=== PATIENT | male | born 1955 | race Caucasian/White ===

== ENCOUNTER 2021-05-02 09:36 | Observation (INO) ==
[2021-05-02 10:30] LABS: Basophils % 0.2 %; Eosinophils # 0.1 K/mcL (0.0-0.6); Eosinophils % 0.9 %; Hematocrit 37.6 % (37.5-50.1); Immature Granulocytes % 1.2 % (0-4); Lymphocytes # 1.2 K/mcL (0.6-4.6); Lymphocytes % 21.8 %; Mean Corpuscular HGB Conc 31.9 g/dL (31.6-35.5); Mean Corpuscular Hemoglobin 27.3 pg (28.0-33.3); Mean Corpuscular Volume 85.5 fL (83.0-100.0); Mean Platelet Volume 9.9 fL (9.4-12.4); Monocytes # 0.4 K/mcL (0.0-1.3); Monocytes % 6.7 %; Neutrophils # 3.9 K/mcL (1.6-8.9); Platelet Count 169 K/mcL (140-400); Red Cell Distribution Width 14.4 % (11.5-14.5); Segmented Neutrophils % 69.2 %; White Blood Count 5.6 K/mcL (4.3-11.1)
[2021-05-02 10:38] LABS: INR 1.1; Prothrombin Time 11.8 Seconds (9.4-12.1)
[2021-05-02 10:40] LABS: Activated Partial Thrombo Time 26.3 Seconds (26.0-36.0)
[2021-05-02 10:50] LABS: BUN/Creatinine Ratio 13 (6-26); Blood Urea Nitrogen 8 mg/dL (8-23); Calcium 8.7 mg/dL (8.6-10.3); Carbon Dioxide 29 mEq/L (23-29); Chloride 97 mEq/L (98-107); Glucose 214 mg/dL (70-105); Osmolality,Calculated 285 (280-300); Potassium 4.2 mEq/L (3.5-5.1); Sodium 135 mEq/L (136-145); Troponin I < 0.03 ng/mL (< 0.04); eGFR For African Americans > 60 (> 60); eGFR For Non-African Americans > 60 (> 60)
[2021-05-02] MEDS ORDERED: *HR* HYDROcodone/Acet 5/325 mg TABLET PO PRN (13:12)
[2021-05-02] MEDS ORDERED: Ondansetron 4 MG/2 ML VIAL IVP PRN (13:12)
[2021-05-02] MEDS ORDERED: Naloxone 0.4 MG/ML INJ IVP PRN (13:12)
[2021-05-02] MEDS ORDERED: Albuterol 2.5 MG/3 ML NEBULIZER IH PRN (13:14)
[2021-05-02] MEDS ORDERED: Ipratropium Neb 0.5 MG NEBULIZER IH PRN (13:14)
[2021-05-02] MEDS ORDERED: D5% in Water 1,000 ML IVC PRN (13:15)
[2021-05-02] MEDS ORDERED: Dextrose Gel 15 GM/37.5 ML TUBE PO PRN ×2 (13:15)
[2021-05-02] MEDS ORDERED: *HR* Dextrose 50 % in Water (Syg) 50 ML SYRINGE IVP PRN (13:15)
[2021-05-02] MEDS: Insulin LISPRO 300 UNITS/3 ML VIAL SUBQ SCH (16:22)
[2021-05-02] MEDS ORDERED: Furosemide 20 MG/2 ML VIAL IVP SCH (21:00)
[2021-05-03] MEDS ORDERED: *HR* Enoxaparin 40 MG/0.4 ML SYRINGE SQ SCH (06:00)
[2021-05-03 07:47] LABS: Basophils % 0.4 %; Eosinophils % 0.4 %; Hematocrit 41.3 % (37.5-50.1); Hemoglobin 12.8 g/dL (12.9-16.9); Lymphocytes # 1.2 K/mcL (0.6-4.6); Lymphocytes % 23.3 %; Mean Corpuscular Hemoglobin 26.8 pg (28.0-33.3); Mean Corpuscular Volume 86.4 fL (83.0-100.0); Mean Platelet Volume 10.1 fL (9.4-12.4); Monocytes # 0.4 K/mcL (0.0-1.3); Monocytes % 7.1 %; Neutrophils # 3.3 K/mcL (1.6-8.9); Platelet Count 198 K/mcL (140-400); Red Blood Count 4.78 M/mcL (4.19-5.50); Red Cell Distribution Width 14.3 % (11.5-14.5); Segmented Neutrophils % 65.8 %; White Blood Count 5.1 K/mcL (4.3-11.1)
[2021-05-03 08:02] LABS: Magnesium 2.1 mg/dL (1.6-2.6); Phosphorous 2.9 mg/dL (2.7-4.5)
[2021-05-03] MEDS ORDERED: Loratadine 10 MG TABLET PO SCH (09:00)
[2021-05-03] MEDS ORDERED: Furosemide 20 MG/2 ML VIAL IVP SCH (09:00)
[2021-05-03] MEDS ORDERED: Cholecalciferol (D-3) 1,000 UNIT (25MCG) TABLET PO SCH (09:00)
[2021-05-03] MEDS: Insulin LISPRO 300 UNITS/3 ML VIAL SUBQ SCH ×2 (09:08→14:35)
[2021-05-03 11:11] VITALS: BP 144/77; PULSE 85; TEMP 98; O2SAT 93
[2021-05-03] MEDS: Ipratropium 1 PUFF INHALER IH SCH ×2 (14:36→17:13)
== END 2021-05-03 18:24 | disposition home health service (06) ==
LOC: 3BNU 09:36 → EMEROOARM 09:36 → SUATTDRO 15:15 → 3BNU 15:48
PROVIDERS: ADMIT Family Medicine; ATTEND Pharmacist